=== PATIENT | female | born 1945 | race Caucasian/White ===

== ENCOUNTER 2023-03-03 10:35 | Emergency (ER) | payer MEDICARE ==
[~2023-03-03] VITALS: Ht 152.4 cm; Wt 62.6 kg
[2023-03-03 11:06] VITALS: BP 175/102; PULSE 85; RESP 20
[2023-03-03] MEDS ORDERED: IBUPROFEN 600 MG TABLET PO ONE (11:30)
[2023-03-03] MEDS ORDERED: DEXAMETHASONE SOD PHOSPHATE 4 MG/ML 1ML VIAL IM ONE (11:30)
[2023-03-03] MEDS ORDERED: CYCL-309 PO (12:37)
[2023-03-03] MEDS ORDERED: IBUP-2070 PO (12:37)
[2023-03-03] MEDS ORDERED: OMEP40CA21 PO (12:37)
== END 2023-03-03 12:42 | disposition home or self-care (01) ==
LOC: EDH 10:35
DX: S76.911A Strain of unspecified muscles, fascia and tendons at thigh level, right thigh, initial encounter (principal); I10 Essential (primary) hypertension; Z88.0 Allergy status to penicillin; Z88.2 Allergy status to sulfonamides; Z88.6 Allergy status to analgesic agent; X58.XXXA Exposure to other specified factors, initial encounter; Y93.01 Activity, walking, marching and hiking; Y92.89 Other specified places as the place of occurrence of the external cause; Y99.8 Other external cause status
CPT/HCPCS: 99285; 93971; 96372; J1100

== ENCOUNTER 2023-03-28 12:02 | Emergency (ER) | payer MEDICARE ==
[~2023-03-28] VITALS: Ht 152.4 cm; Wt 62.6 kg
[~2023-03-28 12:02] MED LIST: CYCL-309 PO; IBUP-2070 PO; OMEP40CA21 PO
[2023-03-28 13:48] LABS: BASOPHILS # (AUTO) 0.11 K/uL (0.00-0.20); BASOPHILS % (AUTO) 1.5 % (0.0-5.0); EOSINOPHILS # (AUTO) 0.18 K/uL (0.00-0.70); EOSINOPHILS % (AUTO) 2.5 % (0.0-8.0); HEMATOCRIT 41.3 % (36-48); IMMATURE GRANULOCYTE ABSOLUTE 0.03 K/uL (0-1); LYMPHOCYTES # (AUTO) 0.9 K/uL (1.0-4.8); LYMPHOCYTES % (AUTO) 13.1 % (21.0-51.0); MEAN CORPUSCULAR HEMOGLOBIN 31.6 pg (27.0-33.0); MEAN CORPUSCULAR HGB CONC 33.2 g/dL (32.0-36.0); MEAN CORPUSCULAR VOLUME 95.4 fL (79-99); MONOCYTES # (AUTO) 0.7 K/uL (0.1-1.0); MONOCYTES % (AUTO) 10.3 % (3.0-13.0); NEUTROPHILS # (AUTO) 5.2 K/uL (1.8-7.7); NEUTROPHILS % (AUTO) 72.2 % (40.0-77.0); PLATELET COUNT (AUTO) 301 K/uL (130-400); RED BLOOD CELL COUNT(AUTO) 4.33 MIL/uL (4.00-5.50); RED CELL DISTRIBUTION WIDTH 13.7 % (11.0-15.5); WHITE BLOOD COUNT (AUTO) 7.2 K/uL (4.8-10.8)
[2023-03-28 14:17] LABS: CREATININE 1.1 mg/dL (0.5-1.5); POTASSIUM 4.2 mmol/L (3.5-5.1)
[2023-03-28 14:22] LABS: ALBUMIN 3.9 g/dL (3.5-5.0); BILIRUBIN,TOTAL 0.4 mg/dL (0.2-1.0); TOTAL PROTEIN, SERUM 7.8 g/dL (6.0-8.3)
[2023-03-28] MEDS ORDERED: LEVO-70 PO (14:55)
[2023-03-28 15:22] VITALS: BP 127/77; PULSE 77; RESP 18; O2SAT 99
== END 2023-03-28 15:22 | disposition home or self-care (01) ==
LOC: EDH 12:02
DX: J01.40 Acute pansinusitis, unspecified (principal); I10 Essential (primary) hypertension; E78.00 Pure hypercholesterolemia, unspecified; E03.9 Hypothyroidism, unspecified; K21.9 Gastro-esophageal reflux disease without esophagitis; Z79.899 Other long term (current) drug therapy; Z98.890 Other specified postprocedural states; Z88.0 Allergy status to penicillin; Z88.2 Allergy status to sulfonamides; Z88.6 Allergy status to analgesic agent
CPT/HCPCS: 36415; 70450; 80053; 84484; 85025; 93005